=== PATIENT | male | born 1965 | race Caucasian/White ===

== ENCOUNTER 2016-03-05 19:37 | Emergency (ER) | payer BC ==
[~2016-03-05] VITALS: Ht 185.4 cm; Wt 100.0 kg
[2016-03-05 19:39] VITALS: BP 150/86; PULSE 97; RESP 16; TEMP 97.6; O2SAT 97
[2016-03-05] MEDS ORDERED: LEVO100T5 PO (20:22)
[2016-03-05 21:48] LABS: AUTOMATED NEUTROPHIL # 6.8 TH/MM3 (1.8-7.7); BASOPHIL # 0.1 TH/MM3 (0-0.2); BASOPHIL % 0.5 % (0.0-2.0); EOSINOPHIL # 0.3 TH/MM3 (0-0.4); EOSINOPHIL % 2.7 % (0.0-4.0); HEMATOCRIT 42.8 % (39.0-51.0); HEMO FLAGS DIFF FINAL; LYMPH % 17.6 % (9.0-44.0); LYMPHOCYTE # 1.7 TH/MM3 (1.0-4.8); MEAN CELL VOLUME 90.8 FL (80.0-100.0); MEAN CORPUSCULAR HEMOGLOBIN 31.5 PG (27.0-34.0); MEAN CORPUSCULAR HGB CONC 34.7 % (32.0-36.0); MONO % 9.4 % (0.0-8.0); NEUT % 69.8 % (16.0-70.0); PLATELET COUNT 216 TH/MM3 (150-450); RED BLOOD COUNT 4.71 MIL/MM3 (4.50-5.90); RED CELL DISTRIBUTION WIDTH 12.5 % (11.6-17.2); WHITE BLOOD COUNT 9.7 TH/MM3 (4.0-11.0)
[2016-03-05 22:12] LABS: BICARBONATE 25.9 MEQ/L (21.0-32.0); POTASSIUM 3.8 MEQ/L (3.5-5.1)
[2016-03-05 22:23] LABS: BLOOD, URINE NEG (NEG); GLUCOSE,URINE NEG (NEG); KETONE, URINE NEG (NEG); NITRITE,URINE NEG (NEG); URINE COLOR LIGHT-YELLOW (YELLW/STRAW)
[2016-03-05 22:24] LABS: COMMENT (UR) CULT NOT INDICATED; CULTURE IF INDICATED CULT NOT INDICATED
[2016-03-05] MEDS ORDERED: LOPE7.5C PO (23:15)
--- NOTE | 2016-03-05 23:18 | PD ---
HPI Chief Complaint: Abdominal Pain Time Seen by Provider: 22:48 Travel History International Travel<30 days: No Contact w/Intl Traveler<30days: No Traveled to known affect area: No History of Present Illness HPI 51-year-old male arrives ER complaining of diarrhea for about 2 days or so. All started after he ate a submarine sandwich consisting of roast beef jerky and mayonnaise. Symptoms began about 5 hours after ingestion. 2-3 episodes of diarrhea per hour occurred over the course of the prior evening. He felt somewhat better after the course of the day today however after eating dinner developed some diarrhea. He's had no fever. No vomiting has occurred however he did feel somewhat nauseated. No similar prior episodes occurred. He has had no blood in the stool. No sick contacts. PFSH Social History Tobacco Use: No Allergies-Medications (Allergen,Severity, Reaction): Coded Allergies: No Known Allergies (Unverified , 03/05/16) Reported Meds & Prescriptions Reported Meds & Active Scripts Active Imodium A-D (Loperamide HCl) 2 Mg Cap 2 Mg PO Q6H PRN Reported Levothyroxine (Levothyroxine Sodium) 100 Mcg Tab 100 Mcg PO DAILY Review of Systems Except as stated in HPI: all other systems reviewed are Neg Physical Exam Narrative GENERAL: 51 yo male no acute distress SKIN: Warm and dry. HEAD: Atraumatic. Normocephalic. EYES: Pupils equal and round. No scleral icterus. No injection or drainage. ENT: No nasal bleeding or discharge. Mucous membranes pink and moist. NECK: Trachea midline. No JVD. CARDIOVASCULAR: Regular rate and rhythm. No murmur appreciated. RESPIRATORY: No accessory muscle use. Clear to auscultation. Breath sounds equal bilaterally. GASTROINTESTINAL: Abdomen soft, non-tender, nondistended. Hepatic and splenic margins not palpable. MUSCULOSKELETAL: No obvious deformities. No clubbing. No cyanosis. No edema. NEUROLOGICAL: Awake and alert. No obvious cranial nerve deficits. Motor grossly within normal limits. Normal speech. PSYCHIATRIC: Appropriate mood and affect; insight and judgment normal. Data Data Last Documented VS Vital Signs Date Time Temp Pulse Resp B/P Pulse Ox O2 Delivery O2 Flow Rate FiO2 03/05/16 19:39 97.6 97 16 150/86 97 Room Air Orders Basic Metabolic Panel (Bmp) (03/05/16 20:59) Complete Blood Count With Diff (03/05/16 20:59) Urinalysis - C+S If Indicated (03/05/16 20:59) Hepatic Functional Panel (03/05/16 21:23) Lipase (03/05/16 21:23) Labs Laboratory Tests Test 03/05/16 03/05/16 21:20 21:23 Urine Color LIGHT-YELLOW Urine Turbidity CLEAR Urine pH 6.0 Urine Specific [place] 1.004 Urine Protein NEG mg/dL Urine Glucose (UA) NEG mg/dL Urine Ketones NEG mg/dL Urine Occult Blood NEG Urine Nitrite NEG Urine Bilirubin NEG Urine Urobilinogen LESS THAN 2.0 MG/DL Urine Leukocyte Esterase NEG Urine RBC LESS THAN 1 /hpf Urine WBC LESS THAN 1 /hpf Microscopic Urinalysis Comment CULT NOT INDICATED White Blood Count 9.7 TH/MM3 Red Blood Count 4.71 MIL/MM3 Hemoglobin 14.9 GM/DL Hematocrit 42.8 % Mean Corpuscular Volume 90.8 FL Mean Corpuscular Hemoglobin 31.5 PG Mean Corpuscular Hemoglobin 34.7 % Concent Red Cell Distribution Width 12.5 % Platelet Count 216 TH/MM3 Mean Platelet Volume 8.4 FL Neutrophils (%) (Auto) 69.8 % Lymphocytes (%) (Auto) 17.6 % Monocytes (%) (Auto) 9.4 % Eosinophils (%) (Auto) 2.7 % Basophils (%) (Auto) 0.5 % Neutrophils # (Auto) 6.8 TH/MM3 Lymphocytes # (Auto) 1.7 TH/MM3 Monocytes # (Auto) 0.9 TH/MM3 Eosinophils # (Auto) 0.3 TH/MM3 Basophils # (Auto) 0.1 TH/MM3 CBC Comment DIFF FINAL Differential Comment Sodium Level 140 MEQ/L Potassium Level 3.8 MEQ/L Chloride Level 105 MEQ/L Carbon Dioxide Level 25.9 MEQ/L Anion Gap 9 MEQ/L Blood Urea Nitrogen 12 MG/DL Creatinine 1.41 MG/DL Estimat Glomerular Filtration 53 ML/MIN Rate Random Glucose 116 MG/DL Calcium Level 8.5 MG/DL Total Bilirubin 3.5 MG/DL Direct Bilirubin 0.3 MG/DL Indirect Bilirubin 3.2 MG/DL Aspartate Amino Transf 18 U/L (AST/SGOT) Alanine Aminotransferase 32 U/L (ALT/SGPT) Alkaline Phosphatase 61 U/L Total Protein 7.1 GM/DL Albumin 3.8 GM/DL Lipase 134 U/L MDM Medical Decision Making Medical Screen Exam Complete: Yes Emergency Medical Condition: Yes Differential Diagnosis Constipation, Gastritis, Acute Cholecystitis, Biliary Colic, Pancreatitis, BAR , Hepatitis, Bowel Obstruction, Cystitis, Mesenteric Ischemia, AAA, Appendicitis , Renal Stone/Hydronephrosis, GERD, perforated viscous Narrative Course CBC & BMP Diagram 03/05/16 21:23 Bilirubin 3.5 LFTs otherwise normal Lipase normal Patient reports feeling quite a bit better while waiting in the ER. In fact symptoms have essentially resolved while in the ER. Trace hyperbilirubinemia is somewhat nonspecific and in the absence of abdominal pain does not warrant further imaging. Return precautions discussed. Loperamide prescribed. Diagnosis Primary Impression: Diarrhea Qualified Code: R19.7 - Diarrhea, unspecified type Referrals: Primary Care Physician 2 days Additional Instructions: You have a choice when it comes to health care, and we are glad that you chose [facility]. Hopefully, we have met your expectations on today's visit. You are welcome to return to [facility] at any time, as we are committed to meeting the health care needs of our community. Med/Other Pt SpecificInfo: Prescription(s) given Scripts Loperamide (Imodium A-D)2 Mg Cap2 Mg PO Q6H PRN (DIARRHEA) #10 CAP Ref 0 Prov:Weston Ross MD 03/05/16 Disposition: 01 DISCHARGE HOME Condition: Stable Weston Ross MD Mar 05, 2016 23:18
[2016-03-05 23:50] LABS: TOTAL BILIRUBIN ADULT 3.5 MG/DL (0.2-1.0)
[2016-03-06 00:07] LABS: INDIRECT BILIRUBIN 3.2 MG/DL (0.0-0.8)
== END 2016-03-05 23:57 | disposition home or self-care (01) ==
LOC: NEPC 19:37
DX: R19.7 Diarrhea, unspecified (principal)
CPT/HCPCS: 80048; 80076; 81001; 83690; 85025; 99284